=== PATIENT | female | born 1935 | race Caucasian/White ===

== ENCOUNTER → 2016-11-08 | Day surgery (SDC) | payer MEDICARE, BC ==
[~2016-11-08] VITALS: Ht 165.1 cm; Wt 88.5 kg
[~2016-11-08] MED LIST: ALLEGRA60 MG PO; ASPIRIN EC81 MG PO; CARAFATE1 GM PO; COUMADIN ** IA5 MG PO; DOC-Q-LACE100 MG PO; ENZYME DIGEST1 EACH PO; FLONASE 50 MCG/16 GM NOSE; NEXIUM40 MG PO; NITROGLYCERIN0.2 MG TRANS; PROBIOTIC1 EAC1 PO; SYSTANE ULTRA 010 ML OPHTH; TENORMIN25 MG PO
[2016-11-08 10:14] LABS: INR - (THERAPEUTIC) 2.02 (0.92-1.07); PROTIME 21.4 SECONDS (9.8-11.4)
== END | disposition disaster alternative care site (69) ==
LOC: GPOC 11-07 17:00 → GEND 07:46
PROVIDERS: Internal Medicine Gastroenterology
PROC: 0DJ08ZZ Inspection of Upper Intestinal Tract, Via Natural or Artificial Opening Endoscopic (ICD-10-PCS; principal; 2016-11-08)
DX: R10.13 Epigastric pain (principal); K31.89 Other diseases of stomach and duodenum; K22.4 Dyskinesia of esophagus; K21.9 Gastro-esophageal reflux disease without esophagitis; I10 Essential (primary) hypertension; I82.4Z1 Acute embolism and thrombosis of unspecified deep veins of right distal lower extremity; M19.90 Unspecified osteoarthritis, unspecified site; H40.9 Unspecified glaucoma; Z90.710 Acquired absence of both cervix and uterus; Z98.890 Other specified postprocedural states; Z88.0 Allergy status to penicillin; Z88.8 Allergy status to other drugs, medicaments and biological substances; Z79.82 Long term (current) use of aspirin; Z79.51 Long term (current) use of inhaled steroids; Z79.899 Other long term (current) drug therapy
CPT/HCPCS: J2001; J7030

== ENCOUNTER → 2017-01-03 | Outpatient (CLI) | payer MEDICARE, BC | END | disposition disaster alternative care site (69) | LOC: GRAD 10:38 | DX: R14.0 Abdominal distension (gaseous) (principal) | CPT/HCPCS: A9541 ==